=== PATIENT | male | born 1980 | race Caucasian/White ===

== ENCOUNTER 2017-06-11 15:02 | Emergency (ER) | payer OTHER ==
[~2017-06-11] VITALS: Ht 177.8 cm; Wt 92.3 kg
[2017-06-11 15:48] LABS: HEMATOCRIT 44.6 % (38.0-50.0); MCH 27.8 PG (29.0-34.0); MCHC 35.7 G/DL (30.0-36.0); PLATELET COUNT 285 K/uL (156-360); RBC DIS.WIDTH-CV 11.9 % (11.8-14.6); RED BLOOD COUNT 5.72 M/uL (4.00-5.50); WHITE BLOOD COUNT 6.7 K/uL (4.1-10.2)
[2017-06-11 16:01] LABS: CHLORIDE 105 mEq/L (99-109); POTASSIUM 4.2 mEq/L (3.7-5.4); SODIUM 138 mEq/L (136-147)
[2017-06-11 16:03] LABS: GLUCOSE 90 mg/dL (70-99)
[2017-06-11 16:04] LABS: ANION GAP 7 MEQ/L (2-14)
[2017-06-11 16:07] LABS: UREA NITROGEN (BUN) 12 mg/dL (9-23)
[2017-06-11 16:11] LABS: GFR ESTIMATE (CALCULATED) > 59 mL/min/
[2017-06-11] MEDS ORDERED: FIORICET 50-301 EAC1 PO (17:58)
[2017-06-11 19:03] VITALS: BP 115/75
== END 2017-06-11 19:03 | disposition home or self-care (01) ==
LOC: EME 15:02
DX: R51 Headache (principal); H53.8 Other visual disturbances; R11.0 Nausea; R07.9 Chest pain, unspecified
CPT/HCPCS: 70450; 71020; 80048; 85027; 93005; 99281; 99285; J1200; J1885; J2765

== ENCOUNTER 2017-06-19 08:35 | Emergency (ER) | payer OTHER ==
[~2017-06-19] VITALS: Ht 167.6 cm; Wt 92.2 kg
[~2017-06-19 08:35] MED LIST: FIORICET 50-301 EAC1 PO
[2017-06-19] MEDS ORDERED: MOTRIN600 MG PO (08:57)
[2017-06-19] MEDS ORDERED: ERYTHROMYC1 APPLICAT BOTH EYES (08:57)
[2017-06-19 09:20] VITALS: BP 141/86
== END 2017-06-19 09:21 | disposition home or self-care (01) ==
LOC: EME 08:35
DX: S05.02XA Injury of conjunctiva and corneal abrasion without foreign body, left eye, initial encounter (principal); W55.03XA Scratched by cat, initial encounter
CPT/HCPCS: 99281; 99284